=== PATIENT | male | born 1985 | race Caucasian/White ===

== ENCOUNTER 2023-09-26 12:23 | Day surgery (SDC) | payer OTHER ==
[2023-09-26] MEDS: Lactated Ringers 1,000 ML IV SCH (12:34)
[2023-09-26] MEDS ORDERED: fentaNYL 50 MCG/ML SDV ONE (13:16)
[2023-09-26] MEDS ORDERED: Propofol 200 MG/20 ML SDV ONE (13:16)
[2023-09-26] MEDS ORDERED: Ketamine 200 MG/20 ML MDV ONE (13:16)
[2023-09-26] MEDS ORDERED: Lidocaine 2% 20 ML MDV ONE (13:16)
== END 2023-09-26 14:21 | disposition home or self-care (01) ==
LOC: CC.SDS 12:23
PROVIDERS: ATTEND Family Medicine
DX: R13.10 Dysphagia, unspecified (principal); J45.909 Unspecified asthma, uncomplicated; N45.1 Epididymitis; M25.50 Pain in unspecified joint; Z79.899 Other long term (current) drug therapy
CPT/HCPCS: 00731; 87081; J2704; J3010; J3490; J7120